=== PATIENT | male | born 1960 | race Caucasian/White ===

== ENCOUNTER → 2021-12-30 | Day surgery (SDC) | payer OTHER ==
[~2021-12-30] VITALS: Ht 170.2 cm; Wt 83.5 kg
[~2021-12-30] MED LIST: AMLODIPINE BESY10 MG PO; LEVOTHYROXINE100 MCG PO; PREDNISONE 5 MG5 MG PO; PRINIVIL20 MG PO; TAMSULOSIN HCL0.4 MG PO; VITAMIN B-125000 MCG SUBLING
--- NOTE | ~2021-12-30 | O ---
[facility] [place] [address] OPERATIVE REPORT Name: LIVIER CRAWFORD Room #: REG 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 PROCEDURE PERFORMED: Muscle biopsy, left thigh/quadriceps muscle. ANESTHETIC: Local 0.2% Marcaine. COMPLICATIONS: None. ESTIMATED BLOOD LOSS: 5 mL SURGEON: Alfredito Kemp MD PROCEDURE NOTE: The left thigh was prepped and draped in a sterile fashion. Timeout was performed. IV antibiotic was administered. 0.25% Marcaine was used to anesthetize the skin and subcutaneous tissue. A transverse incision about 4 cm was made over the thigh. This was carried down to the fascia. Local anesthetic was placed just under the fascia. The fascia was opened. The muscle was identified. The muscle was isolated. A muscle clamp was placed under the muscle. After the clamp was secured, the ends of the muscle was trimmed sharply with Metzenbaum scissors on either side of the clamp. Specimen was placed in a saline moistened gauze and then placed in a specimen cup and placed into a container of ice. This was then taken to the pathologist for handling. The hemostasis was obtained. The fascia over the muscle was closed with 4-0 PDS in an interrupted fashion. Skin was irrigated. Skin was closed with 5-0 PDS. Steri-Strip, 4 x 4, Op-Site used for dressing. The patient tolerated the procedure well. By: 31 51 Alfredito Kemp MD /nt
[2021-12-30 12:08] VITALS: BP 114/73
[2021-12-30 14:55] VITALS: BP 114/73
--- NOTE | 2022-01-09 14:08 | PATH ---
[facility] [address] [place] [address] PATHOLOGY RPT PROCEDURE Name: LIVIER MERAZ Room #: [place] [facility] [place].#: [id number] Admission: 12/30/21 Date of : 64 Discharge: Report #: [id number] Path Case #: [id number] [facility] Accession Number: [id number] . 01 Material submitted: . thigh - LEFT THIGH MUSCLE BIOPSY. Modifiers: left . 01 Clinical history: . POLYMOSITIS . 02 Diagnosis: Special studies report received from [employer], [id number] [place] [address], [place] [address], on case [id number], labeled with their number [id number], dated 12/31/2021. . Specimen submitted: By Byron Smith MD For Muscle, biopsy . Final Diagnosis: Skeletal muscle, left thigh, biopsy: -Active myopathic process with midl chronic inflammation -Type 2 muscle fiber atrophy -Background denervation type changes -No morphologic evidence of vasculitis -See Comment . Comment: This patient's muscle biopsy demonstrates morphologic features of an active myopathic process with mild chronic lymphoid inflammation. In addition, there is a diffuse increase in muscle fiber staining for MHC1. In the context of this patient's clinical history, the overall morphologic features are consistent with the presence of a partially treated acquired inflammatory myopathy. . Type 2 muscle fiber atrophy is a nonspecific finding which may be seen in a variety of settings, including disuse, cachexia, chronic steroid exposure, and endocrine disease (thyroid). . The background denervation type changes consistent of the presence of occasional scattered esterase positive atrophic muscle fibers suggesting a mild component of ongoing denervation, and relatively frequent targetoid myofibers. No convincing fiber type grouping is seen to provide evidence for prior denervation and subsequent successful reinnervation. . No morphologic evidence of vasculitis is seen. Features diagnostic for the presence of Inclusion Body Myositis are not present. No perifascicular atrophy is seen to suggest the presence of dermatomyositis. [address] [address] PATHOLOGY RPT PROCEDURE Name: LIVIER MERAZ Room #: [facility] [place].[facility].#: [id number] Admission: 12/30/21 Date of : 64 Discharge: Report #: [id number] Path Case #: [id number] . Final results discussed with Dr. Smith on 01/06/2022 5452 (TODDLER NANNY) by Dr. Boudreaux. . Clinical History: The patient is a 61-year-old male who is clinically felt to have an acquired inflammatory myopathy (polymyositis versus Inclusion Body Myositis). His past medical history is significant for Raynaud's disease, proteinuria, and porphyria cutaneous tarda. Prior muscle biopsy in 2017 was reported as polymyositis, but could not rule out Inclusion Body Myositis. Laboratory studies showed elevated ESR, positive DEVIN (1:1000), and weak positive U1 RN INFUSION and U2 RN INFUSION. The patient has been previously treated with methotrexate and prednisone, and is reported to have shown some clinical improvement. . Microscopic description: Hematoxylin and eosin stained sections prepared from snap frozen tissue demonstrate skeletal muscle in predominantly cross-section. The biopsy tissue shows mild tissue edema. However, the sample is in relatively good condition, and is adequate for evaluation. The endomysial and perimysial fibrous connective tissue is not increased. Patchy mild chronic lymphoid inflammation is noted within the perimysium and endomysium. No morphologic evidence of vasculitisi is noted. Occasional scattered regenerating muscle fiberts are present. Occasional scattered muscle fibers with possible mild increase in mitochondrial type staining are seen. The muscle fibers show moderate variation in fiber diameter due to the presence of relatively frequent acutely angulated atrophic myofibers. The number of muscle fibers with internalized nuclei is minimally increased. No convincing perifascicular atrophy is seen. Modified Gomori Trichrome preparation confirms the presence of occasional scattered muscle fibers with mild increase in mitochrondial type staining. No convincing rimmed vacuole type structures are appreciated. NADH-TR preparation demonstrates relatively frequent targetoid myofibers. Esterase preparation darkly highlights occasional acutely angulated atrophic myofibers. The aforementioned chronic inflammatory cells and/or macrophages are also highlighted by esterase. No significant increase in capillary, perimysial, or muscle fiber staining is noted for alkaline phosphatase. Immunohistochemical stains for myosin heavy chains fast and slow (MHCf and MHCs) show the presence of atrophic muscle fibers of both myofiber types with a predominance of atrophic type 2 myofibers ( component of type 2 muscle fiber atrophy. No convincing fiber type grouping is seen. Activities for myophosphorylase, myoadenylate deaminase (MAD), cytochrome oxidase (ESTEVES), and succinic acid dehydrogenase (SDH) are present. There is a relatively diffuse mild decrease in staining intensity for myophosphorylase, which is felt to be due to partial tissue degradation. No rimmed vacuole type staining intensity for myophosphorylase, which is felt to be due to partial tissue degradation. No rimmed vacuole type staining is appreciated for MAD. A few scattered ESTEVES-negative muscle fibers are present (less than 1% of total muscle [address] [address] PATHOLOGY RPT PROCEDURE Name: LIVIER MERAZ Room #: REG [facility]#: [id number] Admission: 12/30/21 Date of : 64 Discharge: Report #: [id number] Path Case #: [id number] fibers present in the biopsy). Scattered muscle fibers show increased staining for SDH (ragged-blue fibers). Congo red stain is negative for amyloid deposition and intracellular congophilic inclusions (evaluated under routine light microscopy and fluorescence microscopy with [place] Red and FITC filters). . Staining for MHC1 and C5b-9 was performed in an attempt to further evaluate for the presence of an acquired inflammatory/immune-mediated myopathy. There is a relatively diffuse moderate increase in sarcolemmal and sarcoplasmic staining of muscle fibers for MHC1. There is a patchy mild increase in capillary staining for C5b-9. In addition, C5b-9 shows granular sarcolemmal staining around occasional intact muscle fibers. . Hematoxylin and eosin stained sections prepared from formalin fixed paraffin embedded tissue demonstrate morphologic features similar to that seen in the frozen section material. Immunohistochemical stains for TDP43 and p62 were performed to further evaluate for the presence of intracellular fibrillary inclusions. No convincing inclusion type staining is noted with either antibody. . All controls reacted appropriately. . Toluidine blue stained semi thin sections prepared from four glutaraldehyde fixed resin embedded tissue blocks demonstrate morphologic features similar to that seen in the frozen and paraffin tissue sections. . Electron microscopy: Ultrastructural study demonstrates occasional muscle fibers with nonspecific regenerative/degenerative changes, including the presence of disorganization of sarcomeric arrangement. Occasional variably atrophic muscle fibers show mild increase in lipofuscin staining. Two muscle fibers show incidental small collections of tubular aggregates (a nonspecific finding). A single muscle fiber shows an incidental fibrous body. No other abnormal accumulations of subcellular material and/or organelles is seen. No abnormality of mitochondrial architecture is noted, and no mitochondrial paracrystalline inclusions are seen. . Gross Description: Received from [facility] via [facility] is a muscle biopsy, labeled with the patient's name (Livier Meraz), ), and "left thigh." The is specimen is been previously divided into three portions: two portions of tissue measuring 1.6 x 0.5 x 0.4 cm and 0.8 x 0.5 x 0.4 cm, transported in the fresh refrigerated state in saline; two portions of tissue in formalin measuring 1.6 x 0.5 x 0.4 cm and 1.0 x 0.5 x 0.2 cm; and fouyr portions of tissue in glutaraldehyde measuring 0.4-1.4 cm in greatest dimension (1.4 x 1.1 x 0.4 cm in aggregate). The previously frozen tissue is briefly thawed and then resnap frozen for frozen sections and enzyme histochemistry (blocks A1 and A2); [facility] [address] [place] [address] PATHOLOGY RPT PROCEDURE Name: LIVIER MERAZ Room #: [facility] [place].R.#: [id number] Admission: 12/30/21 Date of : 64 Discharge: Report #: [id number] Path Case #: [id number] the formalin fixed tissue is processed for paraffin block embedding (A3); and the glutaraldehyde fixed tissues is processed for electron microscopy (x4 blocks). No tissue is separately retained in the frozen state for biochemical studies. Techs: JENNA . *I have reviewed the clinical history, the pertinent gross findings, all microscopic materials, discussed the case with the clinician when appropriate, and have rendered the final diagnosis. . . Final Diagnosis performed by Zak Boudreaux M.D. Electronically signed 01/06/2022 4:28:02 PM . . A complete copy of the report is on file. . Professional and technical services performed by [facility] [employer] at [address] [place] [address], [facility] [address], [place], [address]. . (ANK:sally 01/07/2022) . AZJ 01/08/2022 1516 Local . 02 Electronically signed: . Kasey Osullivan MD, Pathologist NPI- [id number] . 01 Gross description: . The specimen is received without fixative and on ice, labeled "Mariya Livier, left thigh muscle polymyocitis vs inclusion body myocitis fresh on ice" and consists of a salazar-red portion of muscle (1.9 x 1.4 x 0.5 cm). The specimen is divided into three parts and each is entirely submitted in glutaraldehyde, sodium chloride, and formalin. The specimen is given directly to send outs for additional testing. (OUZINKIE; 12/30/2021) DKA/DKA 12/30/2021 1600 Local . 02 Pathologist provided ICD-10: M60.9 . 02 CPT . 984386 Specimen Comment: A courtesy copy of this report has been sent to [phone] Specimen Comment: Report sent to Specimen Comment: A duplicate report has been generated due to demographic updates. Performed at: 01 [facility] [address] [place] [address] PATHOLOGY RPT PROCEDURE Name: MERAZ,LIVIER Room #: [place] [facility] [place].#: [id number] Admission: 12/30/21 Date of : 64 Discharge: Report #: [id number] Path Case #: [id number] [facility] [address] [facility] [address], [place], [place] [id number] MD George Monson MD Phone: [phone] Performed at: 02 [facility] [address] [place], [place] [id number] MD Kasey Osullivan MD Phone: [phone]
== END | disposition home or self-care (01) ==
LOC: OR 10:58
PROVIDERS: ATTEND Surgery
DX: M62.81 Muscle weakness (generalized) (principal); M62.50 Muscle wasting and atrophy, not elsewhere classified, unspecified site; M06.9 Rheumatoid arthritis, unspecified; I10 Essential (primary) hypertension; N40.0 Benign prostatic hyperplasia without lower urinary tract symptoms; E03.9 Hypothyroidism, unspecified; Z98.890 Other specified postprocedural states; Z79.899 Other long term (current) drug therapy; Z20.822 Contact with and (suspected) exposure to COVID-19; Z90.49 Acquired absence of other specified parts of digestive tract; Z88.8 Allergy status to other drugs, medicaments and biological substances
CPT/HCPCS: 50010; 50101; 50386; 50403; 51477; 56526